=== PATIENT | female | born 1985 | race Caucasian/White ===

== ENCOUNTER 2018-09-07 11:49 | Emergency (ER) | payer OTHER ==
[~2018-09-07] VITALS: Ht 157.5 cm; Wt 65.3 kg
[2018-09-07] MEDS ORDERED: PRENATAL + DHA1 EAC1 (12:14)
== END 2018-09-07 15:33 | disposition home or self-care (01) ==
LOC: ER 11:49
DX: O20.0 Threatened abortion (principal); Z34.81 Encounter for supervision of other normal pregnancy, first trimester